=== PATIENT | female | born 1980 | race Caucasian/White ===

== ENCOUNTER 2020-02-13 03:27 | Emergency (ER) | payer OTHER, SELFPAY ==
--- NOTE | ~2020-02-13 | CT_ITS ---
EXAMINATION: CT abdomen pelvis w con INDICATION: Abdominal pain TECHNIQUE: Computed tomographic images of the abdomen and pelvis were obtained after the administrati on of 100 cc of Omnipaque 350 intravenous contrast. The dose-length product (DLP) was 975.22 mGy-cm. Automated exposure control and iterative reconstruction technique were employed. COMPARISON: None available FINDINGS: The lung bases are clear. The heart size is normal. The liver, spleen, pancreas, and adrena l glands are normal. There appear to be stones in the nondistended gallbladder. There is a 4 mm stone at the left ureterovesicular junction which causes moderate left hydroureteronephrosis. There is dec reased perfusion of the left kidney compared to the right and a small amount of left perinephric fat stranding. The right kidney is unremarkable. No pathologically enlarged abdominal or pelvic lymph nod es are identified. There is no free intraperitoneal gas or evidence of bowel obstruction. There is mo derate lumbar spondylosis at L5-S1. A small fat-containing umbilical hernia is noted. IMPRESSION: 1. 4 mm stone at the left ureterovesicular junction causing moderate left hydroureteronephrosis with possible superimposed pyelonephritis.. Reviewed, dictated and finalized at location B. IMPRESSION: 1. 4 mm stone at the left ureterovesicular junction causing moderate left hydro ureteronephrosis with possible superimposed pyelonephritis..
[2020-02-13 03:33] VITALS: BP 133/80; PULSE 73; RESP 18; TEMP 36.7; O2SAT 100
--- NOTE | 2020-02-13 03:57 | ED.BACK ---
HPI - Back Pain/Injury General Chief Complaint: Back Pain/Injury Stated Complaint: abd pain/pelvic pain/back pain Time Seen by Provider: 02/13/20 03:29 Source: RN notes reviewed History of Present Illness HPI Narrative: Patient presents emergency department from home for lower back pain. Patient states that she was sleeping when she was awoken with pain in the lower back rating around to the bilateral lower abdomen at approximately 1 AM. States she has had associated nausea she denies any fevers or chills chest pain shortness of breath vomiting diarrhea or any other symptoms. States she took Tylenol 3 at home for pain with no relief. She denies any other symptoms at this time Related Data Allergies Allergy/AdvReac Type Severity Reaction Status Date / Time adhesive tape Allergy Unknown TEARS SKIN Verified 02/13/20 03:38 latex Allergy Unknown RASH-BURNING Verified 02/13/20 03:38 SENSATION sulfa Allergy Severe Anaphylactic Uncoded 02/13/20 03:38 Shock Review of Systems Review of Systems: Narrative: Gen.: Denies fevers or chills ENT: Denies congestion Respiratory: Denies shortness of breath or cough CV: Denies chest pain or palpitations GI: See HPI denies burning, urgency, frequency or hematuria Musculoskeletal: Reports bilateral lower back pain Neuro: Denies numbness, tingling, weakness or focal weakness Skin: Denies rash Except as documented, all other systems reviewed and negative [facility] Past Medical History Medical History (Updated 02/13/20 @ 05:56 by Diego Baron DO) Arthritis Social History Social History (Updated 02/13/20 @ 03:58 by Diego Baron DO) Smoking status: Current every day smoker Exam Narrative: Exam Narrative: APPEARANCE: Moderate distress from pain, nontoxic laying in bed HEENT: Normocephalic, atraumatic, OMM RESPIRATORY: No respiratory distress, clear to auscultation bilaterally with no rhonchi wheezing or rales CARDIOVASCULAR: RRR s murmur ABDOMINAL: Soft, nondistended, tender palpation lower quadrant left lower quadrant no tenderness right upper quadrant left upper quadrant, no rebound or guarding MUSCULOSKELETAl: Moves all extremities. No clubbing, cyanosis or edema. NEURO: Awake and alert. Following commands, speech normal, no focal deficits SKIN:: Warm, dry. Normal Color PSYCHIATRIC: Normal affect/mood Course Course Emergency Course: Patient states pain is improved at this time Discussed with patient results of workup and diagnosis. Discussed need for follow-up with primary care, proper use of medication, and reasons to return to the emergency department. Patient understands and agrees to current treatment plan Vital Signs Vital signs: Vital Signs Temperature 98.0 F 02/13/20 03:33 Pulse Rate 73 02/13/20 03:33 Respiratory Rate 18 02/13/20 03:33 Blood Pressure 133/80 02/13/20 03:33 Pulse Oximetry 100 02/13/20 03:33 Temperature 98.0 F 02/13/20 03:33 Pulse Rate 73 02/13/20 03:33 Respiratory Rate 18 02/13/20 03:33 Blood Pressure 133/80 02/13/20 03:33 Pulse Oximetry 100 02/13/20 03:33 MDM - Back Pain/Injury Lab Data Result diagrams: 02/13/20 04:24 02/13/20 04:24 Labs: Lab Results 02/13/20 02/13/20 02/13/20 Range/Units 04:24 04:24 04:37 WBC 11.3 H (4.5-10.0) K/mm3 RBC 4.53 (4.2-5.4) M/mm3 Hgb 14.8 (12.0-15.0) g/dL Hct 43.9 (37.0-47.0) % MCV 96.9 (80-100) fl MCH 32.7 (26-34) pg MCHC 33.7 (32-36) g/dl RDW 12.5 (11.5-14.5) % Plt Count 280 (150-375) k/mm3 MPV 11.6 H (7.4-10.4) fl Immature Gran % (Auto) 0.4 (0-0.5) % Neut % (Auto) 49.3 (45.5-73.1) % Lymph % (Auto) 39.0 (18.3-44.2) % Crowley % (Auto) 8.6 H (2.6-8.5) % Eos % (Auto) 2.3 (0-4.4) % Baso % (Auto) 0.4 (0.2-1.2) % Lymph # (Auto) 4.41 H (0.9-3.2) K/mm3 Crowley # (Auto) 1.0 H (0.1-0.6) K/mm3 Eos # (Auto) 0.3 (0-0.3) K/mm3 Baso # (Auto) 0.0 (
[2020-02-13] MEDS: MORPHINE SULFATE 4 MG/ML INJ IV PUSH (03:59)
[2020-02-13] MEDS: SODIUM CHLORIDE 0.9% IV 1,000 ML 999 ML IV CONT (03:59)
[2020-02-13] MEDS: ONDANSETRON INJ 4 MG/2 ML VIAL IV PUSH (03:59)
[2020-02-13 04:31] LABS: Basophils Percent Auto 0.4 % (0.2-1.2); Eosinophils Absolute Auto 0.3 K/mm3 (0-0.3); Eosinophils Percent Auto 2.3 % (0-4.4); Hematocrit 43.9 % (37.0-47.0); Hemoglobin 14.8 g/dL (12.0-15.0); Immature Granulocyte Absolute 0.04 K/mm3 (0.00-0.031); Immature Granulocyte Percent A 0.4 % (0-0.5); Lymphocytes Absolute Auto 4.41 K/mm3 (0.9-3.2); Mean Corpuscular HGB Conc 33.7 g/dl (32-36); Mean Corpuscular Hemoglobin 32.7 pg (26-34); Mean Corpuscular Volume 96.9 fl (80-100); Mean Platelet Volume 11.6 fl (7.4-10.4); Monocytes Percent Auto 8.6 % (2.6-8.5); Neutrophils Absolute Auto 5.6 K/mm3 (1.3-6.7); Neutrophils Percent Auto 49.3 % (45.5-73.1); Platelet Count Result 280 k/mm3 (150-375); Red Blood Count 4.53 M/mm3 (4.2-5.4); Red Cell Distribution Width 12.5 % (11.5-14.5); White Blood Count 11.3 K/mm3 (4.5-10.0)
[2020-02-13 04:48] LABS: Alanine Aminotransferase 22 U/L (4-35); Albumin Level 4.7 g/dL (3.5-5.1); Alkaline Phosphatase 111 U/L (38-126); Anion Gap 10 mmol/L (8-16); Aspartate Amino Transferase 29 U/L (14-36); Bilirubin,Total 0.8 mg/dL (0.2-1.3); Blood Urea Nitrogen 14 mg/dL (7-17); Calcium 10.8 mg/dL (8.4-10.2); Carbon Dioxide 20 mmol/L (22-30); Chloride 106 mmol/L (98-107); Estimated CRCL calculation 86 ml/min; Estimated Glomerular Filt Rate > 60; Glucose 130 mg/dL (65-105); Lipase 86 U/L (23-300); Potassium 3.9 mmol/L (3.4-5.0); Sodium 136 mmol/L (137-145)
[2020-02-13 04:55] LABS: Add Urine Microscopic? YES; Appearance Urine Cloudy (Clear); Bacteria Urine Trace /hpf; Bilirubin Urine Negative (Negative); Blood Urine 2+ (Negative); Calcium Oxalate Crystals Urine Many /hpf; Color Urine Yellow (Yellow); Glucose Urine UA Negative (Negative); Ketones Urine 1+ mg/dL (Negative); Leukocyte Esterase Ur Negative LEU/UL (Negative); Mucus Urine Rare /lpf; Nitrate Urine Negative (Negative); Protein Urine 2+ mg/dL (Negative); Specific Grav Ur 1.029 (1.001-1.035); Squamous Epithelial Cell Urine Few /hpf (Few); Urobilinogen Urine Negative mg/dL (<2.0); WBC Urine 0-3 /hpf
[2020-02-13] MEDS: TAMSULOSIN HCL 0.4 MG CAPSULE PO (05:32)
[2020-02-13] MEDS: KETOROLAC 30 MG/ML VIAL (*BKC) IV PUSH (05:32)
[2020-02-13 06:08] VITALS: BP 136/86; PULSE 82; RESP 18; TEMP 36.8; O2SAT 100
== END 2020-02-13 06:09 | disposition home or self-care (01) ==
PROVIDERS: Emergency Provider Emergency Medicine
DX: N13.2 Hydronephrosis with renal and ureteral calculous obstruction (principal); M19.90 Unspecified osteoarthritis, unspecified site; F17.200 Nicotine dependence, unspecified, uncomplicated
CPT/HCPCS: 36415; 74177; 80053; 81001; 81025; 83690; 85025; 96361; 96374; 96375; 99284; A9270; J1885; J2270; J2405; J7030; Q9967

== ENCOUNTER 2022-02-13 12:32 | Emergency (ER) | payer OTHER, SELFPAY ==
--- NOTE | 2022-02-13 12:35 | ED.URI ---
HPI - URI/Sore Throat General Chief Complaint: Upper Respiratory Infection Stated Complaint: FEVER Time Seen by Provider: 02/13/22 12:36 Source: patient Mode of arrival: ambulatory Limitations: no limitations History of Present Illness HPI Narrative: Ms. Cagle is a 42-year-old female patient presenting to the clinic today with complaints of a fever and cough x1 week. She is bringing up some green mucus with a little bit of blood in it. She thinks she may have a sinus infection. States she did a COVID test on and it was negative at that time. Related Data Allergies Allergy/AdvReac Type Severity Reaction Status Date / Time adhesive tape Allergy Unknown TEARS SKIN Verified 02/13/22 12:48 latex Allergy Unknown RASH-BURNING Verified 02/13/22 12:48 SENSATION sulfa Allergy Severe Anaphylactic Uncoded 02/13/22 12:48 Shock Review of Systems Review of Systems: Pertinent positives per HPI. Patient denies any rash, headache, visual changes, dizziness, sore throat, shortness of breath, chest pain, palpitations, nausea, vomiting, diarrhea, constipation, abdominal pain, or any urinary issues. [facility] Past Medical History Medical History Arthritis Social History Social History Smoking status: Current every day smoker Comments At the time of my signature, I reviewed and agree with the nursing past medical, surgical, social, and family history. There is no relevant family history pertinent to the patient complaint. Exam Narrative: General: Well-developed, overweight, in no apparent distress Head: Normocephalic, atraumatic Eyes: Pupils equally round and reactive to light bilaterally, EOM intact, sclera and conjunctive clear, no discharge, lids normal Ears: TMs intact and clear, ear canals clear, no drainage, grossly hearing normal. Nose: Nares patent, brown nasal discharge, moderate to severe inflammation, frontal and maxillary sinus tenderness. Mouth: Oropharynx without lesions or masses, good dentition, MMM. Postnasal drip Neck: Supple, trachea midline, no enlargement of anterior or posterior cervical nodes, no thyroid masses or goiter palpable. Cardio: Regular rate and rhythm, s1 and s2 normal, no murmur appreciated. Resp: Clear to auscultation bilaterally anteriorly and posteriorly, no rhonchi, rales, wheezing or rubs Course Course Emergency Course: Portions of this record may have been created with voice recognition software. Level of Care: Express Care Visit Vital Signs Vital signs: Vital Signs Temperature 36.9 C 02/13/22 12:47 Pulse Rate 114 H 02/13/22 12:47 Respiratory Rate 16 02/13/22 12:47 Blood Pressure 119/84 02/13/22 12:47 Pulse Oximetry 97 02/13/22 12:47 Oxygen Delivery Room Air 02/13/22 12:47 Temperature 36.9 C 02/13/22 12:49 Pulse Rate 114 H 02/13/22 12:49 Respiratory Rate 16 02/13/22 12:49 Blood Pressure 119/84 02/13/22 12:49 Pulse Oximetry 97 02/13/22 12:49 Oxygen Delivery Room Air 02/13/22 12:49 Vital signs reviewed MDM - URI/Sore Throat MDM Narrative Medical decision making narrative: At the time of visit patient is resting comfortably on the exam table. Patient reports she has been having symptoms for approximately 5 to 7 days. She has had brown purulent discharge coming from the nares and has a productive cough with some blood. I suspect the patient has acute bacterial rhinosinusitis and will treat with a prescription for some Augmentin and I also will give her a prescription for some Diflucan for vaginal Estefanía as she often gets this with the use of antibiotics. Supportive measures were discussed with the patient she voiced understanding of discharge instructions and agrees to treatment plan. Differential Diagnosis Differential diagnosis: Likely upper respiratory infection, croup, otitis media, sinusitis, silver
[2022-02-13 12:47] VITALS: BP 119/84; PULSE 114; RESP 16; TEMP 36.9; O2SAT 97
[2022-02-13 12:49] VITALS: BP 119/84; PULSE 114; RESP 16; TEMP 36.9; O2SAT 97
== END 2022-02-13 13:29 | disposition home or self-care (01) ==
PROVIDERS: Emergency Provider Nurse Practitioner Family
DX: J01.90 Acute sinusitis, unspecified (principal); M19.90 Unspecified osteoarthritis, unspecified site
CPT/HCPCS: 99213; G0463

== ENCOUNTER 2022-09-05 12:07 | Outpatient (CLI) | payer OTHER, SELFPAY ==
--- NOTE | ~2022-09-05 | MMUS_ITS ---
EXAMINATION: MM diagnostic naif BI w dylan, US breast BI complete HISTORY: 6:00 left breast lump and bilateral breast pain, tenderness, itching TECHNIQUE: Bilateral full field and spot ML, MLO and CC 3-D tomosynthesis images were performed and s ynthetic 2-D images were generated. CAD analysis was submitted and interpreted. High resolution bilat eral complete breast ultrasound examination including all 4 quadrants and subareolar areas was perfor med. COMPARISON: None BREAST PARENCHYMAL COMPOSITION: There are scattered areas of fibroglandular density. FINDINGS: MAMMOGRAPHIC FINDINGS: There are bilateral mammographic asymmetries. No suspicious mass or architectural distortion, maligna nt calcification, skin thickening or retraction is evident. In particular no suspicious mass is noted in the 6:00 area of the left breast. ULTRASOUND: No suspicious mass or shadowing of either breast is detected. At right breast 8:00 6 cm from the nipple there is a benign appearing lymph node measuring approximat marlene 2.8 x 5.2 x 7.5 mm. IMPRESSION: 1. No mammographic evidence of malignancy 2. Routine annual mammographic screening is recommended BI-RADS Category 2: Benign finding(s). Reviewed, dictated and finalized at location A. IMPRESSION: 1. No mammographic evidence of malignancy 2. Routine annual mammographic screening is recommended BI-RADS Category 2: Benign finding(s).
== END 2022-09-05 12:08 | disposition home or self-care (01) ==
PROVIDERS: Visit Provider Nurse Practitioner Obstetrics & Gynecology
DX: N64.4 Mastodynia (principal)
CPT/HCPCS: 76641; 77062; 77066; G0279

== ENCOUNTER 2023-11-12 15:32 | Outpatient (CLI) | payer OTHER, SELFPAY ==
--- NOTE | ~2023-11-12 | MM_ITS ---
EXAMINATION: MM screening naif BI w dylan HISTORY: Screening TECHNIQUE: Craniocaudal and mediolateral oblique 3-D tomosynthesis images were obtained and synthetic 2-D images were generated. CAD analysis was submitted and interpreted. COMPARISON: 09/05/2022 BREAST PARENCHYMAL COMPOSITION: FINDINGS: There is possible developing architectural distortion in the upper outer quadrant of both b reasts, middle third. There are no suspicious calcifications. No discrete masses. IMPRESSION: 1. Possible developing bilateral architectural distortion. 2. Additional mammographic views and possible breast ultrasound are recommended. BI-RADS Category 0: Incomplete: Needs additional imaging evaluation. Reviewed, dictated and finalized at location B. IMPRESSION: 1. Possible developing bilateral architectural distortion. 2. Additional mammographic views and possible breast ultrasound are recommended . BI-RADS Category 0: Incomplete: Needs additional imaging evaluation.
== END 2023-11-12 15:33 | disposition home or self-care (01) ==
LOC: ANHIMG 15:35
PROVIDERS: Visit Provider Nurse Practitioner Obstetrics & Gynecology
DX: Z12.31 Encounter for screening mammogram for malignant neoplasm of breast (principal); R92.8 Other abnormal and inconclusive findings on diagnostic imaging of breast
CPT/HCPCS: 77063; 77067

== ENCOUNTER 2023-12-03 10:46 | Outpatient (CLI) | payer OTHER, SELFPAY ==
--- NOTE | ~2023-12-03 | MM_ITS ---
EXAMINATION: MM diagnostic naif BI w dylan HISTORY: Architectural distortion TECHNIQUE: Additional 3-D tomosynthesis spot compression images of the bilateral breasts were perform ed and synthetic 2-D images were generated. CAD analysis was submitted and interpreted. COMPARISON: 11/12/2023, 09/05/2022 FINDINGS: There are scattered fibroglandular densities. The areas of distortion/density demonstrate effacement with spot compression. No suspicious mass lesi on or distortion seen. No suspicious microcalcification. IMPRESSION: No mammographic evidence for malignancy. BI-RADS Category 1: Negative Reviewed, dictated and finalized at location M.
== END 2023-12-03 10:47 | disposition home or self-care (01) ==
LOC: ANHIMG 10:53
PROVIDERS: Visit Provider Nurse Practitioner Obstetrics & Gynecology
DX: R92.8 Other abnormal and inconclusive findings on diagnostic imaging of breast (principal)
CPT/HCPCS: 77062; 77066; G0279

== ENCOUNTER 2024-06-07 17:42 | Emergency (ER) | payer OTHER, SELFPAY ==
--- NOTE | 2024-06-07 17:46 | ED_ITS ---
HPI - Eye Problem General Chief complaint: Eye Problems Stated complaint: Left Eye Pain Time Seen by Provider: 06/07/24 17:45 Source: patient Mode of arrival: ambulatory Limitations: no limitations History of Present Illness HPI Narrative: Patient is a 44-year-old female who presents with left eye pain that started 3 days ago. Patient states she removed a hair and what looked like a piece of dirt from eye but still has sensation of something being stuck. Patient does report of folic it was moving around from top to bottom. Patient denies any vision changes discharge from eye. Related Data Home Medications ?Medication ?Instructions ?Recorded ?Confirmed ?Last Taken ?Type montelukast 10 mg tablet 10 mg PO DAILY 10/05/23 10/05/23 Unknown History Allergies Allergy/AdvReac Type Severity Reaction Status Date / Time Sulfa (Sulfonamide Allergy Severe Anaphylactic Verified 06/07/24 18:05 Antibiotics) Shock adhesive tape Allergy Unknown TEARS SKIN Verified 06/07/24 18:05 latex Allergy Unknown RASH-BURNING Verified 06/07/24 18:05 SENSATION Review of Systems Review of Systems: All systems reviewed & are unremarkable except as noted in HPI and below Constitutional: Constitutional: Denies body ache(s), Denies fever(s), Denies headache(s), Denies malaise and Denies weakness Eyes: Eyes: Denies blurry vision, Denies eye discharge, Reports irritation, Denies itchy eyes, Denies loss of vision and Reports eye pain ENT: Denies otalgia, Denies headache(s), Denies nasal discharge, Denies sinus pain and Denies sore throat Cardiovascular: Cardiovascular: Denies chest pain, Denies irregular heart rhythm and Denies dyspnea Respiratory: Respiratory: Denies dyspnea Gastrointestinal: Gastrointestinal: Denies abdominal pain, Denies diarrhea, Denies nausea and Denies vomiting Musculoskeletal: Musculoskeletal: Denies back pain, Denies myalgias and Denies arthralgias Integumentary/Breasts: Skin/Breast: Denies pruritus and Denies rash Neurologic: Denies headache(s), Denies loss of vision and Denies weakness Psychiatric: Psychiatric: Reports no additional psychiatric complaints Allergic/Immunologic: Allergic/Immunologic: Reports itchy eyes PMFSH Past Medical History Medical History Arthritis Surgical History Surgical History History of hysterectomy (~2018) Family History Family History Grandparent Hypertension Social History Social History Smoking status: Former smoker Alcohol intake: never Substance use type: does not use Comments At time of signature, agree with nursing past medical, surgical, social and family history. There is no relevant family history pertinent to the presenting complaint. Exam Const: General: cooperative, healthy appearing, comfortable, no acute distress and well nourished Nutritional Appearance: well nourished Orientation/consciousness: patient oriented x3 Limitations: no limitations HENMT: Head: normal to inspection, normocephalic and atraumatic Ears: external ears normal Face/Nose/Sinus: Normal external nose present, normal facial exam and face symmetric Face and sinus: normal facial exam and face symmetric Mouth: Yes lip normal Eyes: General: appearance normal, both eyes and all related structures Visual Childers: normal visual childers by confrontation Alignment and Position: alignment normal and position normal Periorbital: periorbital findings normal Eyelids: eyelids normal Conjunctivae: conjunctival abnormality left conjunctival injection diffuse Sclera: scleral abnormality left scleral injection diffuse Cornea: corneas normal and fluorescein used Pupils: Equal, round and reactive pupils present EOM: EOMs intact bilaterally Direct Ophthalmoscopy: no photophobia Other: No hyphema, no foreign body under the lids. Neck: Neck: normal visual inspection, full ROM, no lymphadenopathy and no meningeal signs Chest: Chest palpation & inspection: normal inspection of the chest Resp: Effort & Inspection: normal respiratory effort and able to speak in complete sentences Auscultation: clear to auscultation bilaterally Cardio: Rate: regular rate Rhythm: regular rhythm Heart sounds: S1 normal heart sound present and S2 normal heart sound present GI: Inspection: normal to inspection Skin: General skin exam: normal color and no rashes or lesions noted Neuro: General: patient oriented x3, moves all extremities and no meningeal signs Cranial nerves: Yes Equal, round and reactive pupils present Speech: normal speech Gait exam (Neuro): Normal gait present Extrem: General: normal to inspection, full ROM and no edema Psych: Appearance: grossly normal and well kempt Mental Status: mental status grossly normal Speech and movement: Normal speech and movement present Affect: normal affect Attitude: cooperative Thought process: Normal thought process present Course Course Emergency Course: Patient is aware of diagnosis, understands and agrees to treatment plan. Anticipatory guidance given. Patient agrees to follow-up as directed and is aware of reasons to seek care at the emergency department. Portions of this record may have been created with voice recognition software Level of Care: Express Care Visit Vital Signs Vital signs: Reviewed MDM - Eye Problem MDM Narrative Medical decision making narrative: Flushed left eye and patient states she feels the pain went from sharp to dull. Still has sensation foreign body. Using florescence, uptake in lateral upper eye on sclera. No damage to cornea. Pt well hydrated appearing, in no respiratory distress, hemodynamically stable. Recommend supportive care. The patient is stable at time of discharge the clinical impression was discussed and the patient was given the opportunity to ask questions, which were addressed as completely as possible given the information available at present. Anticipatory guidance and return to care precautions were discussed and the importance of primary care follow-up was stressed and encouraged. The patient voiced understanding of the plan, indications to return, and the need for follow-up. Exam findings show no acute concerns or changes Patient is appropriate for outpatient treatment and follow-up. Differential Diagnosis Differential diagnosis: Likely corneal abrasion, conjunctivitis, periorbital cellulitis, subconjunctival hemorrhage, corneal ulcer and other (Scleral abrasion) Medical Records Attestation: I reviewed the patient's medical records. Discharge Plan Discharge Clinical Impression: Abrasion of sclera of left eye Patient Disposition: Home, Self-Care Condition: Stable Instructions: Corneal Abrasion (ED) Additional Instructions: Do not touch or rub your eye. Use a warm or cool washcloth on your eye for comfort Use eyedrops as directed Wear eye patch as much as possible to reduce strain on eye. You may take Tylenol or ibuprofen for pain Follow-up with PCP or electronic prepress system operator if condition is not improving in 2-3days. Go to the emergency room if you have pain behind your eye, pressure behind her eye, difficulty seeing, or other severe symptoms Patient Language: Luxembourgish Prescriptions: New ofloxacin 0.3 % drops See Rx Instructions .ROUTE .COMPLEX Qty: 10 0RF Rx Instructions: put 1-2 drps into left eye every 2-4 h x 2 days, then 1-2 drps 4 times/day days 3-7 No Action montelukast 10 mg tablet 10 mg PO DAILY Follow-up/Referrals: PHYSICIAN,SLACK COOPER [Primary Care Provider] - Kyle Floyd MD [Physician] - 3 Days ([facility]) Time of Disposition: 18:52
[2024-06-07 17:53] VITALS: BP 126/78; PULSE 89; RESP 16; TEMP 36.6; O2SAT 97
== END 2024-06-07 18:59 | disposition home or self-care (01) ==
PROVIDERS: Emergency Provider Nurse Practitioner Family
DX: S05.02XA Injury of conjunctiva and corneal abrasion without foreign body, left eye, initial encounter (principal); X58.XXXA Exposure to other specified factors, initial encounter; M19.90 Unspecified osteoarthritis, unspecified site; Z87.891 Personal history of nicotine dependence
CPT/HCPCS: 99213; A9270; G0463

== ENCOUNTER 2024-07-16 17:12 | Emergency (ER) | payer OTHER, SELFPAY ==
[2024-07-16] VITALS (12 sets, daily range): BP systolic 95–146; BP diastolic 63–87; PULSE 85–145; RESP 11–30; TEMP 37.3–39.5; O2SAT 93–100
--- NOTE | ~2024-07-16 | XR_ITS ---
CHEST RADIOGRAPH, PA AND LATERAL CLINICAL HISTORY: fever . COMPARISON: 08/29/2010 TECHNIQUE: PA and lateral views of the chest. FINDINGS The cardiomediastinal silhouette is unremarkable. The lungs are clear. Visualized osseous structures and soft tissues are unremarkable. IMPRESSION: No focal infiltrate or effusion. Reviewed, dictated and finalized at location A. [employer]
--- NOTE | 2024-07-16 17:21 | ECG_ITS ---
Test Date: 2024-07-16 17:34:08 Measurements Intervals [place] Rate: 89 P: 15 AL: 140 QRS: 4 QRSD: 81 T: 6 QT: 321 QTc: 391 Interpretive Statements SINUS RHYTHM LOW QRS VOLTAGE IN PRECORDIAL LEADS BORDERLINE T WAVE ABNORMALITY- INFERIOR LEADS BASELINE WANDER- AVL, AVF, V1-V6 BORDERLINE ECG No previous ECG available for comparison Electronically Signed On 07-17-2024 05:27:37 [employer] by Evans Matias D.O.
[2024-07-16 17:54] LABS: Basophils Percent Auto 0.3 % (0.2-1.2); Eosinophils Absolute Auto 0.1 K/mm3 (0-0.3); Eosinophils Percent Auto 0.9 % (0-4.4); Hematocrit 43.2 % (37.0-47.0); Hemoglobin 14.1 g/dL (12.0-15.0); Immature Granulocyte Absolute 0.05 K/mm3 (0.00-0.031); Immature Granulocyte Percent A 0.5 % (0-0.5); Lymphocytes Absolute Auto 1.24 K/mm3 (0.9-3.2); Lymphocytes Percent Auto 12.2 % (18.3-44.2); Mean Corpuscular HGB Conc 32.6 g/dl (32-36); Mean Corpuscular Hemoglobin 31.5 pg (26-34); Mean Corpuscular Volume 96.4 fl (80-100); Mean Platelet Volume 10.4 fl (7.4-10.4); Monocytes Absolute Auto 0.9 K/mm3 (0.1-0.6); Monocytes Percent Auto 8.8 % (2.6-8.5); Neutrophils Absolute Auto 7.9 K/mm3 (1.3-6.7); Neutrophils Percent Auto 77.3 % (45.5-73.1); Platelet Count Result 285 k/mm3 (150-375); Red Blood Count 4.48 M/mm3 (4.2-5.4); Red Cell Distribution Width 13.1 % (11.5-14.5); White Blood Count 10.2 K/mm3 (4.5-10.0)
[2024-07-16 17:55] LABS: Add Urine Microscopic? NO; Appearance Urine Clear (Clear); Bilirubin Urine Negative (Negative); Blood Urine Negative (Negative); Color Urine Yellow (Yellow); Glucose Urine UA Negative (Negative); Ketones Urine Negative (Negative); Leukocyte Esterase Ur Negative LEU/UL (Negative); Nitrate Urine Negative (Negative); Protein Urine Negative (Negative); Specific Grav Ur 1.006 (1.001-1.035); Urobilinogen Urine 0.2 mg/dL (<2.0)
--- NOTE | 2024-07-16 17:55 | ED.FEVER ---
HPI - Fever General Chief Complaint: Fever Stated Complaint: post op fever Time Seen by Provider: 07/16/24 17:21 Source: patient Mode of arrival: ambulatory Limitations: no limitations History of Present Illness HPI Narrative: This is a 44-year-old female that presents to the emergency department for fevers. Reports she had a septum repair 6 days ago. Since yesterday she has been experiencing sore throat. Today she spiked a fever. Reports feeling generally unwell. Reports a mild cough. Her surgeon is Dr. Quintana. Related Data Home Medications ?Medication ?Instructions ?Recorded ?Confirmed ?Last Taken ?Type montelukast 10 mg tablet 10 mg PO DAILY 10/05/23 07/16/24 Unknown History estroven BYMOUTH 07/16/24 07/16/24 Unknown History hydrocodone 5 mg-acetaminophen 325 tablet PO 07/16/24 07/16/24 Unknown History mg tablet Allergies Allergy/AdvReac Type Severity Reaction Status Date / Time Sulfa (Sulfonamide Allergy Severe Anaphylactic Verified 07/16/24 17:13 Antibiotics) Shock adhesive tape Allergy Unknown TEARS SKIN Verified 07/16/24 17:13 latex Allergy Unknown RASH-BURNING Verified 07/16/24 17:13 SENSATION Review of Systems Review of Systems: CONSTITUTIONAL: Reports fever ENT: Reports congestion, sore throat RESPIRATORY: Reports cough GASTROINTESTINAL: Denies abdominal pain, nausea, vomiting GENITOURINARY: Denies dysuria All systems reviewed & are unremarkable except as noted in HPI and below PMFSH Past Medical History Medical History (Updated 07/16/24 @ 22:28 by Jocelyn Torre PA-C) Plantar fasciitis Osteoarthritis Arthritis Surgical History Surgical History (Updated 07/16/24 @ 09:11 by Klaudia Ashley MA) H/O sinus surgery (~07/11/24) History of hysterectomy (~2017) Family History Family History Grandparent Hypertension Social History Social History (Updated 07/16/24 @ 09:08 by Klaudia Ashley MA) Smoking status: Former smoker Alcohol intake: never Substance use type: does not use Do You Feel Safe in your Home?: Yes Lack of Transportation: No Lack of Food: Never True Current Housing: I Have Housing Concerned About Future Housing: No Difficulty Paying Gas/Electric Bills: No Difficulty Paying for Meds: No Currently Unemployed: No Education: Associate Degree Difficulty w/ Childcare or Family Care: No Living arrangements: with family Occupation/Education: occupation Additional occupation/education comments: [employer] Gender identity (if verbalized by the patient): Female Sexual Orientation (if Verbalized by the Patient): Straight or Heterosexual Exam Narrative: GENERAL: Ill-appearing, well-nourished, and in no acute distress. HEAD: Normocephalic, atraumatic. EYES: EOMI. ENT: Nares clear, no rhinorrhea or epistaxis. Mucous membranes moist. Oropharynx with mild erythema, no tonsillar hypertrophy exudate or other lesions. Bilateral TMs pearly mayer non-bulging NECK: Supple. No adenopathy or masses. CHEST: Clear to auscultation. No respiratory distress. No wheezes rales or rhonchi HEART: Regular rate and rhythm. No murmur heard. Normal peripheral pulses. EXTREMITIES: Normal range of motion. No edema. SKIN: Warm, dry, no rash. NEURO: No focal deficits. Alert and oriented x3. 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 Patient updated on her workup and agrees with plan of care Vital Signs Vital signs: Vital Signs Temperature 99.1 F 07/16/24 17:15 Pulse Rate 145 H 07/16/24 17:15 Respiratory Rate 24 H 07/16/24 17:15 Blood Pressure 146/77 H 07/16/24 17:15 Pulse Oximetry 98 07/16/24 17:15 Oxygen Delivery Room Air 07/16/24 17:15 Temperature 103.1 F H 07/16/24 18:17 Pulse Rate 99 07/16/24 21:27 Respiratory Rate 15 07/16/24 21:27 Blood Pressure 128/82 07/16/24 21: Pulse Oximetry 100 07/16/24 21:27 Oxygen Delivery Room Air 07/16/24 17:15 MDM - Fever MDM Narrative Medical decision making narrative: Patient presents the emergency department for fevers. Recently underwent septum repair. Febrile in the ED in tachycardic. Given antipyretic and hydrated with improvement. CBC with leukocytosis to 10.2. Metabolic panel with transaminitis. She did test positive for COVID, likely source of transaminitis. Initial lactic acid was elevated, this normalized with IV fluid hydration. Chest x-ray without acute cardiopulmonary abnormality. Patient was updated on her workup and agrees with plan of care. She is instructed on continued care viral infection. She is to follow up with primary provider. She was given warnings to return to the ER Differential Diagnosis Differential diagnosis: Likely fever of unknown origin, community acquired pneumonia, viral infection, influenza and other (COVID) Lab Data Attestation: I reviewed the patient's lab results. 07/16/24 17:41 07/16/24 17:41 Labs: Lab Results 07/16/24 07/16/24 07/16/24 Range/Units 17:41 19:16 21:23 WBC 10.2 H (4.5-10.0) K/mm3 RBC 4.48 (4.2-5.4) M/mm3 Hgb 14.1 (12.0-15.0) g/dL Hct 43.2 (37.0-47.0) % MCV 96.4 (80-100) fl MCH 31.5 (26-34) pg MCHC 32.6 (32-36) g/dl RDW 13.1 (11.5-14.5) % Plt Count 285 (150-375) k/mm3 MPV 10.4 (7.4-10.4) fl Immature Gran % (Auto) 0.5 (0-0.5) % Neut % (Auto) 77.3 H (45.5-73.1) % Lymph % (Auto) 12.2 L (18.3-44.2) % [place] % (Auto) 8.8 H (2.6-8.5) % Eos % (Auto) 0.9 (0-4.4) % Baso % (Auto) 0.3 (0.2-1.2) % Lymph # (Auto) 1.24 (0.9-3.2) K/mm3 [place] # (Auto) 0.9 H (0.1-0.6) K/mm3 Eos # (Auto) 0.1 (0-0.3) K/mm3 Baso # (Auto) 0.0 (0.0-0.1) K/mm3 Abs Immat Gran (auto) 0.05 H (0.00-0.031) K/mm3 Absolute Neuts (auto) 7.9 H (1.3-6.7) K/mm3 Absolute Nucleated RBC 0.000 (0.0-0.012) K/mm3 Nucleated RBC % 0.0 (0.0-0.2) % PT 13.5 (11.1-14.7) Seconds INR 1.0 APTT 24.4 (22.3-36.8) Seconds Sodium 135 L (137-145) mmol/L Potassium 4.1 (3.4-5.0) mmol/L Chloride 100 (98-107) mmol/L Carbon Dioxide 23 (22-30) mmol/L Anion Gap 12 (4-12) mmol/L BUN 5 L D (7-17) mg/dL Creatinine 0.68 L (0.7-1.0) mg/dL Estim Creat Clear Calc 121 ml/min Estimated GFR > 60 (59 - ) Glucose 113 H (65-110) mg/dL Lactic Acid 2.3 H 1.2 (0.7-2.0) mmol/L Calcium 11.1 H (8.4-10.2) mg/dL Total Bilirubin 0.7 (0.2-1.3) mg/dL AST 47 H (14-36) U/L ALT 60 H (6-35) U/L Alkaline Phosphatase 136 H (38-126) U/L C-Reactive Protein 2.7 H (<1.0) mg/dL Total Protein 8.0 (6.3-8.2) g/dL Albumin 4.5 (3.5-5.1) g/dL Urine Color Yellow (Yellow) Urine Appearance Clear (Clear) Urine pH 8.0 (5.0-9.0) Ur Specific [place] 1.006 (1.001-1.035) Urine Protein Negative (Negative) mg/dL Urine Glucose (UA) Negative (Negative) mg/dL Urine Ketones Negative (Negative) mg/dL Ur Blood (Man) Negative (Negative) Urine Nitrate Negative (Negative) Urine Bilirubin Negative (Negative) Urine Urobilinogen 0.2 (<2.0) mg/dL Leukocyte Esterase Rfl Negative (Negative) JOVANNY/UL Influenza A (RT-PCR) Negative (Negative) Influenza B (RT-PCR) Negative (Negative) RSV (RT-PCR) Negative (Negative) SARS-CoV-2 RNA (RT-PCR) Positive A (Negative) Group A Strep (PCR) Not detected (Negative) Imaging Data Radiologist's impression: ITS Impressions Chest X-Ray 07/16/24 19:32 IMPRESSION: No focal infiltrate or effusion. Critical Care Time Critical Care Time Critical Care Time: No Discharge Plan Discharge Clinical Impression: COVID-19, Dehydration Patient Disposition: Home, Self-Care Condition: Improved Instructions: Dehydration (ED), COVID-19 (Coronavirus Disease 2019) (ED), How to Recover from COVID-19 at Home (ED) Additional Instructions: Return to the emergency department for worsening symptoms, or any other concerns Remain well-hydrated, get plenty of rest. Take Tylenol or Motrin [id number] for pain as needed. Zyrtec for runny nose. Lozenges or Chloraseptic spray for sore throat. Follow up with primary care doctor and your ENT doctor Patient Language: Danish Prescriptions: No Action montelukast 10 mg tablet 10 mg PO DAILY hydrocodone-acetaminophen 5-325 mg tablet PO estroven BYMOUTH triamcinolone acetonide 0.05 % ointment 1 applic topical BID Qty: 110 0RF Follow-up/Referrals: PHYSICIAN NOT ON STAFF,NONSTAFF [Primary Care Provider] -
[2024-07-16 18:03] LABS: Lactic Acid Reflex 2.3 mmol/L (0.7-2.0)
[2024-07-16 18:04] LABS: Partial Thromboplastin Time 24.4 Seconds (22.3-36.8); Prothrombin Time 13.5 Seconds (11.1-14.7)
[2024-07-16 18:05] LABS: Alanine Aminotransferase 60 U/L (6-35); Albumin Level 4.5 g/dL (3.5-5.1); Alkaline Phosphatase 136 U/L (38-126); Anion Gap 12 mmol/L (4-12); Aspartate Amino Transferase 47 U/L (14-36); Bilirubin,Total 0.7 mg/dL (0.2-1.3); Blood Urea Nitrogen 5 mg/dL (7-17); CRP 2.7 mg/dL (<1.0); Calcium 11.1 mg/dL (8.4-10.2); Carbon Dioxide 23 mmol/L (22-30); Chloride 100 mmol/L (98-107); Estimated CRCL calculation 121 ml/min; Estimated Glomerular Filt Rate > 60; Glucose 113 mg/dL (65-110); Potassium 4.1 mmol/L (3.4-5.0); Sodium 135 mmol/L (137-145)
[2024-07-16] MEDS: ACETAMINOPHEN 500 MG TABLET 1000 MG PO (18:05)
[2024-07-16] MEDS: SODIUM CHLORIDE 0.9% IV 1,000 ML 999 ML IV CONT ×3 (18:06→19:59)
[2024-07-16 19:48] LABS: Strep Group A RT-PCR NOT DETECTED (Negative)
[2024-07-16 20:00] LABS: Influenza A QL RT-PCR Negative (Negative); Influenza B QL RT-PCR Negative (Negative); RSV RNA, RT-PCR Negative (Negative); SARS-CoV-2 RNA PCR Positive (Negative)
[2024-07-16 20:51] LABS: Reflex Lactic Acid Yes or No Add Lactic
[2024-07-16 21:48] LABS: Lactic Acid 1.2 mmol/L (0.7-2.0)
== END 2024-07-16 22:40 | disposition home or self-care (01) ==
PROVIDERS: Emergency Provider Physician Assistant
DX: U07.1 COVID-19 (principal); E86.0 Dehydration; Z98.890 Other specified postprocedural states; M19.90 Unspecified osteoarthritis, unspecified site; Z87.891 Personal history of nicotine dependence; Z79.899 Other long term (current) drug therapy
CPT/HCPCS: 36415; 71046; 80053; 81003; 83605; 85025; 85610; 85730; 86140; 87637; 87651; 93005; 96361; 96365; 99284; A9270; J7030

== ENCOUNTER 2024-07-24 13:48 | Outpatient (CLI) | payer OTHER, SELFPAY ==
--- NOTE | ~2024-07-24 | MMUS_ITS ---
EXAMINATION: US breast RT limited, MM diagnostic naif BI w dylan HISTORY: Follow-up right breast mass TECHNIQUE: Additional 3-D tomosynthesis images of the breasts were performed and synthetic 2-D images were generated. CAD analysis was submitted and interpreted. High resolution Limited right breast ult rasound was performed. COMPARISON: Comparison to multiple prior studies sequentially, with oldest reviewed study dated 09/2022. BREAST PARENCHYMAL COMPOSITION: Not dense: There are scattered areas of fibroglandular density. FINDINGS: MAMMOGRAPHIC FINDINGS: The breasts are stable. No new masses, calcifications or architectural distortion in either breast to suggest malignancy. ULTRASOUND: Limited right breast ultrasound: At 8:00, 6 cm from the nipple there is a stable oval hypoechoic 7 mm mass with echogenic hilum, compatible with intramammary lymph node without significant interval ye ge. IMPRESSION: 1. No evidence for malignancy in either breast. 2. Routine yearly screening mammogram and regular clinical breast examination are recommended. BI-RADS Category 2: Benign finding(s). Reviewed, dictated and finalized at location B. R SETTER IMPRESSION: 1. No evidence for malignancy in either breast. 2. Routine yearly screening mammogram and regular clinical breast examination a re recommended. BI-RADS Category 2: Benign finding(s).
--- OUTSIDE RECORDS SUMMARY | 2024-07-24 13:54 | XMS_ITS | Data Portability ---
Author Organization [facility] Address [address] [place] [address] Assessment Encounter Date Assessment Date Assessment LastModified by Organization Details LastModified Time 08/21/2023 08/21/2023 Annual gynecological exam performed. Patient will come back in a year unless there are new symptoms. Not available 08/21/2023 14:54:18 Plan of Treatment Reminders Order Date Submit Date Provider Last Modified By Organization Details Last Modified Time Details Appointments None recorded. Lab CMP, serum or plasma [address] (Lab), [address] [place], [address], 4 12:03:06 lipid panel, blood [address] (Lab), [address] [place], [address], 4 12:03:06 HbA1c (hemoglobi n A1c), blood [address] (Lab), [address] [place], [address], 4 12:03:06 CBC w/ auto diff [address] (Lab), [address] [place], [address], 4 12:03:06 TSH, serum or plasma [address] (Lab), [address], [place], [address], 4 12:03:06 Referral None recorded. Procedures None recorded. Surgeries None recorded. Imaging MAMMO, screening, bilateral [address] [facility], [address], [place], [address], 4 17:10:32 US, breast, bilateral, complete 2022 023 [facility], [address], [place], [address], 3 05:01:31 MAMMO, diagnostic , digital, bilateral 2022 023 [facility], [address], [place], [address], 3 14:22:17 Medication Orders None recorded. Patient TargetsNo targets recorded. Patient InstructionsNo instructions recorded. Reason for Referral None Reported. Results Created Date Observation Date Name Description Value Unit Range Abnormal Flag Note LastModifiedBy Organization Detail LastModifiedTime 09/08/19 23 MAMMO , diagn ostic , digit al, bilat eral No observ ation record ed. [address], [place], [address], 08/21/2023 15:09:37 09/08/19 23 MAMMO , diagn ostic , digit al, bilat eral No observ ation record ed. [address], [place], [address], 08/21/2023 15:09:37 11/13/19 24 11/12/2023 MAMMO , scree monica, bilat eral No observ ation record ed. [address], [place], [address], 01/11/2024 11:26:33 Result Notes None recorded. 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 Procedures Surgical History Date Name Laterality Status Provider Name and Address Organization Details Recorded Time 06/04/19 18 Total Hysterectomy completed [facility] 07/19/2022 14:39:06 02/08/20 17 Date of Last Pap Smear completed [facility] 07/19/2022 14:37:27 Hysteroscopy completed [facility] 07/19/2022 14:38:46 Imaging Results Imaging Date Name Status LastModified by Organiz ation Details LastModified Time 09/07/2022 MAMMO, diagnostic, digital, bilateral completed [address], [place], [address], 08/21/2023 15:09:37 09/07/2022 MAMMO, diagnostic, digital, bilateral completed [address], [place], [address], 08/21/2023 15:09:37 11/12/2023 MAMMO, screening, bilateral completed [address], [place], [address], 01/11/2024 11:26:33 Procedure Notes None recorded. Medical Equipment None Reported. Allergies Allergen ID Allergen Name Allergen Category Reaction Reaction Severity Criticality Documentation Date Start Date Code Code System Note Provider Name and Address Organization Details Recorded Time 50270 latex environme nt,medica tion Not available Not available Not available 05/21/2020 21001 91 RxNorm Comme nt: [facility]; Not Available [facility] 0 14:17:55 32480 Substance with sulfonami de structure and antibacte rial mechanism of action (substanc e) medicatio n anaphylax is moderate Not available 08/21/2023 58570 8003 SNOMED Sue [facility] 4 14:54:33 Medications Name Sig Start Date Stop Date Status Note LastModified by Organization Details LastModified Time azithromy alondra 250 mg tablet TAKE 2 TABLETS BY MOUTH TODAY, THEN TAKE 1 TABLET DAILY FOR 4 DAYS DIRECTED 08/20 completed Not Available Not Available Not Available fluconazo le 150 mg tablet TAKE 1 TABLET BY MOUTH NOW THEN REPEAT IN 72 HOURS 07/19 completed Not Available Not Available Not Available Metrogel Vaginal 0.75 % (37.5 mg/5 gram) insert 1 applicat orful by vaginal route every day at bedtime for 5 nights 07/19 completed Prescrib ed Elsewher e: No Locat ion: [facility] odify By: ruba yost DateTime : 07/10/19 18 02:08:04 PM Not Available Not Available Not Available benzonata te 100 mg capsule TAKE 1 CAPSULE THREE TIMES A DAY NEEDED FOR 15 DAY(S) 07/19 completed Not Available Not Available Not Available ibuprofen 200 mg tablet take 1 tablet by oral route every 6 hours as needed with food 07/19 completed Prescrib ed Elsewher e: Yes Loca tion: [facility] odify By: lacho stewart DateTime : 06/07/19 18 10:00:00 AM Not Available Not Available Not Available Provera 10 mg tablet take 1 tablet by oral route every day 10/20 completed Prescrib ed Elsewher e: No Locat ion: [facility] odify By: brionna yost DateTime : 10/16/19 14 10:00:00 AM Not Available Not Available Not Available monteluka st 10 mg tablet TAKE 1 TABLET BY MOUTH EVERY DAY active Not Available Not Available No t Available Tylenol-C odeine #3 300 mg-30 mg tablet take 1 - 2 tablet by oral route every 4 hours as needed 07/19 completed Prescrib ed Elsewher e: Yes Loca tion: [facility] odify By: lacho stewart DateTime : 06/07/19 18 10:00:00 AM Not Available Not Available Not Available methylpre dnisolone 4 mg tablets in a dose pack FOLLOW PACKAGE DIRECTIO NS 08/20 completed Not Available Not Available Not Available Vitamin D2 1,250 mcg (50,000 unit) capsule take 1 capsule by oral route every week 02/07 completed Prescrib ed Elsewher e: No Locat ion: [facility] odify By: siddhartha Ge r DateTime : 11/05/19 16 09:28:30 AM Not Available Not Available Not Available Terazol 7 0.4 % vaginal cream insert 1 applicat orful by vaginal route every day for 7 days at bedtime 02/07 completed Prescrib ed Elsewher e: No Locat ion: [facility] odify By: siddhartha Ge r DateTime : 09/29/19 16 01:00:00 PM Not Available Not Available Not Available amoxicill in 875 mg-potass ium clavulana te 125 mg tablet TAKE 1 TABLET BY MOUTH TWICE A DAY FOR 7 DAYS 08/20 completed Not Available Not Available Not Available BinaxNOW COVID-19 Ag Self Test kit FOLLOW INSTRUCT IONS INCLUDED WITH THE PACKAGE. 07/19 completed Not Available Not Available Not Available Vitals Date Recorded Body height Body mass index (BMI) Body weight Provider Name and Address Organization Details Last Updated DateTime 07/19/2022 175.26 cm 33.8 kg/m2 782918.93 g Christine Middleton [facility] 07/19/2022 14:36:02 Date Recorded Systolic blood pressure Diastolic blood pressure Provider Name and Address Organization Details Last Updated DateTime 07/19/2022 128 mm[Hg] 80 mm[Hg] Smitha Nelson, [facility] [address], [place], [address], [facility] 07/19/2022 14:48:54 Date Recorded Body weight Provider Name an d Address Organization Details Last Updated DateTime 08/21/2023 786522.27 g Sue Peacock [facility] 08/21/2023 14:58:23 Date Recorded Systolic blood pressure Diastolic blood pressure Provider Name and Address Organization Details Last Updated DateTime 08/21/2023 126 mm[Hg] 80 mm[Hg] Smitha Nelson, [facility] [address], [place], [address], [facility] 08/21/2023 15:04:33 Social History Question Answer Notes LastModified by Organizat ion Details LastModified Time Tobacco Smoking Status Former Smoker Sue Peacock [facility], [facility] 08/21/2023 14:59:20 What Is Your Level Of Alcohol Consumption? Occasional Information not available 07/19/2022 How Many Years Have You Consumed Alcohol? 15 [email or web address] Information not available 07/19/2022 Are You Blind Or Do You Have Difficulty Seeing? No [email or web address] Information not available 07/19/2022 What Is Your Level Of Caffeine Consumption? Moderate [email or web address] Information not available 07/19/2022 How Much Tobacco Do You Chew? None [email or web address] Information not available 07/19/2022 In The 14 Days Before Symptom Onset, Have You Had Close Contact With A Laboratory-confir med COVID-19 While That Case Was Ill? No Information not available 07/19/2022 In The 14 Days Before Symptom Onset, Have You Had Close Contact With A Person Who Is Under Investigation For COVID-19 While That Person Was Ill? No [email or web address] Information not available 07/19/2022 Have You Been To An Area Known To Be High Risk For COVID-19? No [email or web address] Information not available 07/19/2022 Are You Deaf Or Do You Have Serious Difficulty Hearing? No [email or web address] Information not available 07/19/2022 What Type Of Diet Are You Following? REGULAR [email or web address] Information not available 07/19/2022 What Is The Highest Grade Or Level Of School You Have Completed Or The Highest Degree You Have Received? 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 No Information not available 07/19/2022 Do You Use Protection During Sex? No [email or web address] Information not available 07/19/2022 Do You Use Your Seat Belt Or Car Seat Routinely? Yes [email or web address] Information not available 07/19/2022 Do You Have Smoke And Carbon Monoxide Detectors In Your Home? Yes Information not available 07/19/2022 At What Age Did You Start Smoking Tobacco? 12 [email or web address] Information not available 07/19/2022 How Much Tobacco Do You Smoke? No Information not available 08/21/2023 Do You Feel Stressed (tense, Restless, Nervous, Or Anxious, Or Unable To Sleep At Night)? LV9091-6 [email or web address] Information not available 07/19/2022 Do You Use Any Illicit Or Recreational Drugs? No Information not available 07/19/2022 Do You Use Sunscreen Routinely? Yes [email or web address] Information not available 07/19/2022 How Many Years Have You Smoked Tobacco? 30 [email or web address] Information not available 07/19/2022 Have You Used IV Drugs? No [email or web address] Information not available 07/19/2022 Sex: Unknown Functional Status Question Answer Note LastModified by Organizat ion Details LastModified Time Do you have difficulty walking or climbing stairs? No [email or web address] Information not available 07/19/2022 Are you able to walk? YESWOREST Information not available 07/19/2022 Are you able to care for yourself? Yes Information not available 07/19/2022 Do you have difficulty dressing or bathing? No [email or web address] Information not available 07/19/2022 What is your exercise level? Occasional [email or web address] Information not available 07/19/2022 Mental Status None recorded. Family History Relationship Description Onset Age of this Age Resolved Age Notes LastModified by Organization Details LastModified Time Paternal Grandmother Hypertensive disorder lewis Not available 07/19 14:12:08 Notes:Paternal grandmother: Hypertension Medical History Condition Response Other N Blood Transfusion N Dermatologic Disorders N Gestational Diabetes N Anxiety Disorder N Autoimmune disease N Arthritis N Polyps N Infertility N Acid Reflux (GERD) N Cancer N Varicosities N Stroke N Neurologic/Epilepsy N Fibromyalgia N Headaches N Kidney Disease N Heart Problems N Kidney or Bladder Problems N Eating Disorder N Art (IVF or FET) N Hepatitis/Liver Disease N No Past Medical History N Urinary Tract Infection N Asthma N Trauma/Violence N Thrombophilias N Allergies (Food, seasonal, environmental ) N Breast Cancer N Drug/Latex Allergies/Reactions N Lung Disease N Defects or Inherited Disease N Breast Problem N Hematologic disorders N Anesthesia Complications N History of STI N Deep Vein Thrombosis N Polycystic ovary syndrome N History of abnormal pap N Endometriosis N High Cholesterol N Thyroid Problems N GI Problems N Anemia N Psychiatric Illness N Ovarian Cancer N Diabetes N Pulmonary (TB, Asthma) N Eczema N Abuse/Domestic Violence N Depression/ depression N Heart Disease N Pre-Eclampsia N Hypertension N Osteoporosis N Gynecological History Statement/Question Response Date of LMP On BCP's at Conception? N N Was last menstrual period normal N STIs/STDs N HPV Vaccine N Current Control Method Hysterectom y Age at First Child 21 Sexually Active? Y Hysterectomy Menses Monthly N Age of first menstrual cycle 12 Date of Last Pap Smear 2017 Sexual Problems? N Desired Control Method Hysterectom y LMP Unknown N Obstetrics History GPAL:G 2 P 2 0 0 2 Type Value Full Term 2 Living 2 Total 2 Past Encounters Encounter ID Performer Location Encounter Start Date Encounter Closed Date Diagnosis/Indication Diagnosis SNOMED-CT Code Diagnosis ICD10 Code Diagnosis Note [id number] Smitha Nelson , [facility] [address] [address] 07/19/2022 14:24:30 07/19/2022 14:55:37 Mastodynia of bilateral breasts [id number] 7740465 N64.4 N63.20 Update Diagnostic mammo/US-- never has a screening mammoWill reach out with these results with next steps in POC. Time spent in visit is a total of 30 mins with at least 50% of visit consisting of counseling and review of plan of care. [id number] Smitha Nelson , [facility] [address] [address] 08/21/2023 14:44:24 08/21/2023 15:13:41 Gynecologic examination 19546301 Z01.419 Suggested Calcium with Vitamin D 1200-1500m g daily. Patient advised to get an annual flu shot in the fall and she could obtain at [facility] or [facility] clinic. Also to obtain TDap vaccinatio n if you have not had one in the last 10 years. Recommend yearly mammograms . Encouraged monthly self breast exams. Encourage safe sexual practices, to use condoms and limit partners if not already in a monogamous relationsh ip. Engage in daily exercise of low impact aerobic exercise 45-60 minutes 4-5 times weekly. Avoid tobacco and illicit drugs as well as using moderation with alcohol intake less than 1-2 8 oz beverages daily. This lifestyle behavior pattern will lead to less health conditions and longer life span. If BMI greater than 25 weight watchers or dietary consult advised. All questions have been answered. Patient appears to understand informatio n, but if you have any questions please call or respond to this email.Pap/ hpv USPSTF recommends against screening for cervical cancer in women older than 65yo, those who've had a hysterecto my for non-cancer indication s, & who have had adequate prior screening & are not otherwise at high risk for cervical cancer. STD Screen declined Genetic Screen discussed Colon Screen due age 45-50yo depending on health Hx Dexa Screen na Routine Labs ordered (will refer to PCP if labs abn) Adult heal th examination 889472608 Z00.00 Screening mammography 24 818725 Z12.31 Health Concerns Section Related Observation LastModified by Organization Detai ls LastModified Time None Recorded Concern Status LastModified by Organization Details LastModified Time None Recorded Advance Directives Directive None Recorded Payers Encounter Date Sequence Insurance Name Policy Number Policy Perez Covered Member ID Perez Member ID Guarantor Name 07/19/2022 1 R [id number] Marie Cooper Loyet [id number] Marie Brannonyet 08/21/2023 1 R [id number] Marie L Loyet [id number] Marie Zavalahenry Notes Date Note Type Note Provider Name and Address Organization Details Recorded Time 07/19/2022 text/html Here today for breast itching/breast pain/thickened tissues mainly left side x 3mos.Hx of hysterectomy with one ovary left for non-cancerous indications. Breast ROS: Neg Nipple discharge Neg Skin discoloration or texture changes ++ left Breast Lump/Mass (more thickened tissue in lower quadrant of left breast which is where itching is happening and tenderness.) ++ Family Hx of breast cancer/other cancers (Maternal Aunt) + Tenderness/pain Neg Trauma to breast Neg Underwire or ill fitting bras Neg notable assymetry of breastsHx reviewed & updated in Chart Smitha Nelson [facility]- [address], [place], [address], [facility] 07/19/2022 14:54:49 08/21/2023 text/html Annual Permanent [place] Post-MenopausalRepo rted bypatient.Menopausa l Symptoms:no menopausal symptoms; normal vaginal lubrication Vaginal Bleeding:history of menopause having occurred; no history of post menopausal bleeding Urinary Symptoms:no hematuria; no incontinence; no nocturia; no urinary frequency Vulva:no genital lesion; no vulvar atrophy Vagina:normal vaginal discharge; no vaginal atrophy Breast:no breast lump; no nipple discharge; no breast pain Sexual Complaints:no sexual complaints Psychological Symptoms:no depression; no anxiety Preventive Measures:encourage regular mammograms starting age 40; encourage self breast examination; encourage regular exercise; encourage no tobacco use; needs to schedule mammogram THU Serrano [address], [place], [address], [facility] 08/21/2023 15:11:51 OBGyn Episode Ob Episode Information Episode Created Date Number of Fetuses Patient Bloodtype Patient rh Status Prepregnancy Weight lbs Domestic Partner Domestic Partner Phone Father Name Engraver Pantograph Status 07/19/19 23 1 CLOSED Fetus Data First Name Last Name Admitted to NICU Weight (g) Sex Living Outcome Pediatric Complications Fetus ID Race Codes Race Delivery Type Full Term [id number] Vaginal Delivery Fabio Calculation Initial Fabio Date Initial Exam Date Initial Exam Provider Initial Ultrasound Date Last Menstrual Period Date Ultra Sound Weeks Gestation 0 Eighteen To Twenty Week Fabio Update Ultra Sound Date Fundal Height At Umbil Quickening Date Ultra Sound Latest Weeks Gestation Final Fabio Confirmed By Final Fabio Confirmed Date Final Fabio Date Ultra Sound Latest Days Gestation 0 0 Menstrual History Last Menstrual Date Menses Monthly On Bcp Conception Prior Menses Frequency Hcg Plus Date Menarche Onset Age Delivery Information Delivery Date Delivery Type Labor Anesthesia Weeks Gestation Incision Type Labor Labor Length Hrs Delivered By Post Complications Tubal Sterilization Discharge Date Comments 2 Discharge Information Feeding Method Contraceptive Method Maternal HG B and HCT Levels Ob Episode Information Episode Created Date Number of Fetuses Patient Bloodtype Patient rh Status Prepregnancy Weight lbs Domestic Partner Domestic Partner Phone Father Name Engraver Pantograph Status 07/19/19 23 1 CLOSED Fetus Data First Name Last Name Admitted to NICU Weight (g) Sex Living Outcome Pediatric Complications Fetus ID Race Codes Race Delivery Type Full Term [id number] Vaginal Delivery Fabio Calculation Initial Fabio Date Initial Exam Date Initial Exam Provider Initial Ultrasound Date Last Menstrual Period Date Ultra Sound Weeks Gestation 0 Eighteen To Twenty Week Fabio Update Ultra Sound Date Fundal Height At Umbil Quickening Date Ultra Sound Latest Weeks Gestation Final Fabio Confirmed By Final Fabio Confirmed Date Final Fabio Date Ultra Sound Latest Days Gestation 0 0 Menstrual History Last Menstrual Date Menses Monthly On Bcp Conception Prior Menses Frequency Hcg Plus Date Menarche Onset Age Delivery Information Delivery Date Delivery Type Labor Anesthesia Weeks Gestation Incision Type Labor Labor Length Hrs Delivered By Post Complications Tubal Sterilization Discharge Date Comments 1 Discharge Information Feeding Method Contraceptive Method Maternal HG B and HCT Levels
== END 2024-07-24 13:49 | disposition home or self-care (01) ==
PROVIDERS: Visit Provider Obstetrics & Gynecology
DX: N63.20 Unspecified lump in the left breast, unspecified quadrant (principal); N63.13 Unspecified lump in the right breast, lower outer quadrant
CPT/HCPCS: 76642; 77062; 77066; G0279